=== PATIENT | male | born 1965 | race Caucasian/White ===

== ENCOUNTER → 2018-06-10 | Outpatient (CLI) | payer OTHER ==
[~2018-06-10] VITALS: Ht 182.9 cm; Wt 102.1 kg
[~2018-06-10] MED LIST: ASPIR 8181 MG PO; LEXAPRO20 MG PO; LOPRESSOR50 PO; XARELTO20 MG PO; ZOCOR20 MG PO
[2018-06-10 07:40] VITALS: BP 119/79
--- NOTE | 2018-06-10 09:01 | EKG ---
[address] [address] ELECTROCARDIOGRAM REPORT Name: ANN WTATS Anna Marie Room #: REG [facility]#: [id number] ������������������ Admission: 06/10/18 ������������������ Attend Phys: Juan A Booker MD Discharge: ������������������ Date of : 67 Report #: [id number] ����������������������������������������������������������������� [id number] THIS REPORT FOR: //name// [facility] Test Date: 2018-06-10 Test Time: 08:12:19 Pat Name: ANN WATTS Department: Room: Gender: M Data Warehouse Developer: Ruben BLANCO : 1965 Requested By: David Staton Order Number: [id number] MD: David Staton Measurements Intervals [place] Rate: 53 P: [place]: QRS: 22 QRSD: 119 T: 210 QT: 510 QTc: 479 Interpretive Statements Atrial fibrillation Nonspecific intraventricular conduction delay ST and T wave abnormality No previous ECG available for comparison Electronically Signed On 06-10-2018 9:01:45 CDT by David Staton [email or web address] ��������������������������������������������� <ELECTRONICALLY SIGNED> ���������������������������������������� By: David Staton MD, [facility] ��������������������������������������������� 06/10/1801 1 David Staton MD, FACC /EPI
--- NOTE | 2018-06-10 09:03 | EKG ---
[address] [address] ELECTROCARDIOGRAM REPORT Name: ANN WATTS Room #: REG [facility]#: [id number] ������������������ Admission: 06/10/18 ������������������ Attend Phys: Juna A Booker MD Discharge: ������������������ Date of : 67 Report #: [id number] ����������������������������������������������������������������� [id number] THIS REPORT FOR: //name// [facility] Test Date: 2018-06-10 Test Time: 08:43:45 Pat Name: ANN WATTS Department: Room: Gender: M Practice Physician: Ruben BLANCO : 1965 Requested By: Juan A Booker Order Number: [id number] MD: David Staton Measurements Intervals [place] Rate: 52 P: -17 ID: [id number] QRS: 21 QRSD: 118 T: 225 QT: 530 QTc: 493 Interpretive Statements Sinus rhythm Atrial premature complex Nonspecific intraventricular conduction delay No previous ECG available for comparison Electronically Signed On 06-10-2018 9:03:15 CDT by David Staton [email or web address] ��������������������������������������������� <ELECTRONICALLY SIGNED> ���������������������������������������� By: David Staton MD, [facility] ��������������������������������������������� 06/10/18 0903 0843 2 David Staton MD, FACC /EPI
--- NOTE | 2018-06-10 09:09 | TEE ---
[facility] [place] [address] TRANSESOPHAGEAL ECHOCARDIOGRAM Name: ANN WATTS Room #: REG [facility]#: [id number] ������������� Admission: 06/10/18 ������������� Attend Phys: Juan A Booker Discharge: ��� ������������� ��� Date of : 67 Date of Service: 06/10/1809 �� Report #: [id number] �������� ��������������������������������������������[id number] THIS REPORT FOR: //name// APPROVED REPORT Study performed: 06/10/2018 08:04:19 EXAM: Transesophageal Echocardiogram and Cardioversion Patient Location: CV holding Status: routine BSA: 2.24 Other Information Study Quality: Adequate Indications Atrial Fibrillation Echo Enhancing Agent Indication: Rule out Shunt Agent(s) / Amount(s) Used: Agitated Saline 6 cc Procedure After obtaining informed consent, patient underwent transesophageal echo in the [employer] [facility]. Type of Sedation : Conscious Sedation Sedation was administered by Blanca Brush RN. Sedation start time: 08:23 Case end Time: 08:28 Sedation was achieved intravenously with: Versed (50) Fentanyl (3) Transesophageal probe was inserted and advanced into esophagus without difficulty by aDvid Staton MD. Echo enhancement indication: R/O Septal defect. Echo enhancement agent administered: Agitated Saline The JAMES was performed without complications. Synchronized Cardioversion attempted: Successful Rhythm following Synchronized Cardioversion: Normal Sinus Rhythm Throughout the procedure, the blood pressure, pulse oximetry, cardiac rhythm, and rate were monitored. The patient tolerated the procedure without adverse effects. Recovery from conscious sedation was uneventful and vital signs were stable. Left Ventricle [facility] [address] [address] TRANSESOPHAGEAL ECHOCARDIOGRAM Name: ANN WATTS Room #: REG Magy.#: [id number] ������������� Admission: 06/10/18 ������������� Attend Phys: Juan [facility] Discharge: ��� ������������� ��� Date of : 67 Date of Service: 06/10/18 0909 �� Report #: [id number] �������� ��������������������������������������������[id number] Echo findings are consistent with hypertrophic cardiomyopathy. The left ventricular systolic function is normal. The left ventricular ejection fraction is within the normal range. LVEF is 55-60%. Right Ventricle The right ventricle is normal size. The right ventricular systolic function is normal. Atria The left atrium size is normal. No thrombus is visualized in the left atrium or appendage. No shunting by contrast bubble injection The right atrium size is normal. Aortic Valve The aortic valve is trileaflet, mild sclerosis Mild aortic regurgitation. There is no aortic valvular stenosis. Mitral Valve The anterior mitral valve leaflet is mildly thickened. Systolic anterior motion Moderate mitral regurgitation. No evidence of mitral valve stenosis. Tricuspid Valve The tricuspid valve is normal in structure. There is no tricuspid valve regurgitation noted. Pulmonic Valve The pulmonary valve is normal in structure. There is no pulmonic valvular regurgitation. Great Vessels The aortic root is normal in size. The ascending aorta is normal in size. IVC is normal in size and collapses >50% with inspiration. Pericardium There is no pericardial effusion. <Conclusion> The left ventricular systolic function is normal. Echo findings are consistent with hypertrophic cardiomyopathy. LVEF is 55-60%. No thrombus is visualized in the left atrium or appendage. No shunting by contrast bubble injection The aortic valve is trileaflet, mild sclerosis, no stenosis. Mild aortic regurgitation. [facility] [address] [place] [address] TRANSESOPHAGEAL ECHOCARDIOGRAM Name: ANN WATTS Room #: REG [facility]#: [id number] ������������� Admission: 06/10/18 ������������� Attend Phys: Juan A Booker Discharge: ��� ������������� ��� Date of : 67 Date of Service: 06/10/18908 �� Report #: [id number] �������� ��������������������������������������������[id number] The anterior mitral valve leaflet is mildly thickened. Systolic anterior leaflet motion. Moderate mitral regurgitation. Normal aorta There is no pericardial effusion. Successful cardioversion of atrial fibrillation to sinus rhythm following 2 biphasic synchronous joules shocks ��������������������������������������������� <ELECTRONICALLY SIGNED> ���������������������������������������� By: David Staton MD, FACC ��������������������������������������������� 06/10/18908 8 8 David Staton MD, FACC /INF
--- NOTE | 2018-06-10 11:38 | NUR ---
PT HOME POST JAMES/CV. NSR. VSS. SL DC'D. PT RECOVERED WITH NO C/O. DISCHARGE INSTRUCTIONS GIVEN TO PT AND HIS FATHER. BOTH VOICE UNDERSTANDING. UP WITH STEADY GAIT TO BATHROOM-VOIDED. PLEASANT AFFECT.
== END | disposition home or self-care (01) ==
LOC: CATH 06:53
DX: I08.0 Rheumatic disorders of both mitral and aortic valves (principal); I48.91 Unspecified atrial fibrillation; I10 Essential (primary) hypertension; I42.9 Cardiomyopathy, unspecified; E78.5 Hyperlipidemia, unspecified; Z79.01 Long term (current) use of anticoagulants; Z86.73 Personal history of transient ischemic attack (TIA), and cerebral infarction without residual deficits; Z79.899 Other long term (current) drug therapy; Z79.82 Long term (current) use of aspirin; Z98.890 Other specified postprocedural states

== ENCOUNTER → 2018-07-10 | Outpatient (CLI) | payer OTHER ==
[~2018-07-10] MED LIST changes: +GABAPENTIN 100100 MG PO; +TOPROL XL100 MG PO
[2018-07-10 07:52] LABS: HEMATOCRIT 47.9 % (42.0-52.0); HEMOGLOBIN 16.4 gm/dL (14.0-18.0); MCH 30.6 pg (26.0-34.0); MCHC 34.3 g/dL (28.0-37.0); MCV 89.2 fL (80.0-100.0); RBC 5.37 mil/uL (4.50-6.00); RDW 13.4 % (10.5-14.5); WBC 6.9 thou/uL (4.0-11.0)
[2018-07-10 08:10] LABS: ALBUMIN 4.1 g/dL (3.4-5.0); CALCIUM 9.3 mg/dL (8.5-10.1); CREATININE 1.2 mg/dL (0.7-1.3); POTASSIUM 4.8 mmol/L (3.5-5.1); TOTAL BILIRUBIN 0.8 mg/dL (<0.1-1.0); TOTAL PROTEIN 7.1 g/dL (6.4-8.2)
== END ==
LOC: CAT 07:23
PROVIDERS: Internal Medicine Cardiovascular Disease
DX: R91.1 Solitary pulmonary nodule (principal); I48.91 Unspecified atrial fibrillation

== ENCOUNTER 2018-07-15 09:39 | Observation (INO) | payer OTHER ==
[~2018-07-15] VITALS: Ht 182.9 cm; Wt 101.6 kg
[~2018-07-15 09:39] MED LIST changes: -GABAPENTIN 100100 MG PO; -TOPROL XL100 MG PO
[2018-07-15 10:06] LABS: ABSOLUTE NEUTROPHILS 3.3 thou/uL (1.4-8.2); BASOPHILS 0.8 % (0.0-2.0); HEMATOCRIT 47.6 % (42.0-52.0); HEMOGLOBIN 16.1 gm/dL (14.0-18.0); LYMPHOCYTES 36.6 % (24.0-44.0); MCH 30.1 pg (26.0-34.0); MCHC 33.7 g/dL (28.0-37.0); MCV 89.3 fL (80.0-100.0); MONOCYTES 6.8 % (1.0-8.0); PLATELET COUNT 175 thou/uL (150-400); POLYS 53.8 % (36.0-66.0); RBC 5.33 mil/uL (4.50-6.00); RDW 13.1 % (10.5-14.5); WBC 6.1 thou/uL (4.0-11.0)
[2018-07-15 10:17] LABS: APTT 30.3 Seconds (24.5-32.8); INR 1.1; PROTIME 11.1 Seconds (9.3-11.4)
[2018-07-15 10:21] LABS: CALCIUM 9.2 mg/dL (8.5-10.1); CREATININE 1.2 mg/dL (0.7-1.3); POTASSIUM 4.4 mmol/L (3.5-5.1)
[2018-07-15 10:23] VITALS: BP 113/78
[2018-07-15 10:27] LABS: ALBUMIN 3.8 g/dL (3.4-5.0); TOTAL BILIRUBIN 0.7 mg/dL (<0.1-1.0)
[2018-07-15] MEDS ORDERED: TOPROL XL100 MG PO (10:40)
[2018-07-15] MEDS ORDERED: GABAPENTIN 100100 MG PO (10:45)
[2018-07-15 19:28] VITALS: BP 116/80
[2018-07-16 00:19] VITALS: BP 129/72
[2018-07-16 04:45] VITALS: BP 129/96
[2018-07-16 07:00] VITALS: BP 115/78
--- NOTE | 2018-07-16 07:32 | NUR ---
ASSESSMENTS CHARTED. PATIENT OFF BEDREST AT 22:15 RIGHT GROIN CHECKED BEFORE AND AFTER PATIENT GETS UP TO THE BATHROOM. ROGER DC'D. PATIENTS BLADDER IS EMPTY AFTER VOID. UP AT KIT IN ROOM. DENIES PAIN. PATIENT DID NOT SLEEP AT ALL DURING THE NIGHT. PLAN OF CARE TO GO HOME TODAY.
[2018-07-16] MEDS ORDERED: MULTAQ 400 MG400 MG PO (09:46)
[2018-07-16 10:24] VITALS: BP 115/78
--- NOTE | 2018-07-16 10:39 | NUR ---
AAAO4 VERY PLEASANT AND COOPERATIVE. RIGHT GROIN CLEAN AND DRY, SOFT DENIES PAIN. LEFT WRIST WITH DRESSING INTACT. GOOD APPETITE FOR BREAKFAST. SALINE LOCK REMOVED AND TELE REMOVED. PATIENT IS DRESSED AND READY FOR D/C. REVIEWED DISCHARGE INFORMATION AND PATIENT VERBALIZED GOOD UNDERSTANDING. VOLUNTEER TO TAKE PATIENT TO EXIT.
--- NOTE | 2018-07-18 14:14 | P ---
[facility] [place] [address] PROCEDURE REPORT Name: ANN WATTS Room #: 200-I [facility] Chidi Real#: [id number] Admission: 07/15/18 ������������������ Attend Phys: Juan A Booker MD Discharge: 07/16/18 ������������������ Date of : 67 Report #: [id number] THIS REPORT FOR: //name// CC: FAM mj CANDIDA PARKER Juan A Booker PREOPERATIVE DIAGNOSIS: Atrial fibrillation. POSTOPERATIVE DIAGNOSIS: Atrial fibrillation. HISTORY: The patient is a 52-year-old with history of atrial fibrillation, here for ablation. PROCEDURE: 1. Atrial fibrillation ablation, CPT code 20469. 2. A 3D mapping EP, CPT code 17378. 3. Intracardiac echo, CPT code 97460. ANESTHESIA: The patient underwent general anesthesia with no anesthesia related complications. The patient did have systolic blood pressures below 100 prior to initiation of the procedure and they were having to give him some vasopressors. As such, I recommended that we cardiovert him before the case and we watched him for a period of 10 minutes after the cardioversion. His systolic blood pressures improved to 120 mmHg. As such, the procedure was performed. DESCRIPTION OF PROCEDURE: The patient underwent informed consent. We discussed the details of the procedure including the risks, which include but not limited to bleeding, vascular damage, cardiac perforation as well as stroke or WA. He understood these risks and is willing to proceed. The patient was brought to the EP laboratory in fasting and sedated state and prepped and draped in a sterile fashion. Next I obtained access to the right femoral veins after injecting lidocaine in the right femoral vein and placed an 8, 9, and 7-German short sheath using the modified Seldinger technique. Catheters were placed into the right atrium. Decapolar catheter was easily placed in the coronary sinus. An ICE catheter was utilized to create a detailed 3D geometry of the left atrium with evidence of a left atrial appendage, two left and two right pulmonary veins. The left lower vessel had 2 branches. The right inferior pulmonary vein also had two early branches. Next, the patient was systemically heparinized and a transseptal was performed using an SL1 sheath and a Mobridge needle. The transseptal was straightforward and I advanced the SL1 to the left atrium using a Lasso catheter, I created a detailed 3D geometry of the left atrium. I then exchanged the SL1 sheath for the cryo sheath and the cryoablation balloon. At baseline, the patient was in sinus rhythm with a sinus [facility] [address] [place] [address] PROCEDURE REPORT Name: ANN WATTS Room #: 200-I [facility] Chidi Anna Marie#: [id number] Admission: 07/15/18 ������������������ Attend Phys: Juan A oBoker MD Discharge: 07/16/18 ������������������ Date of : 67 Report #: [id number] cycle length of 910 milliseconds, MT interval 260 milliseconds, QRS duration 125 milliseconds, QT interval 545 milliseconds. Next, I started by isolating the left superior pulmonary vein. The left superior pulmonary vein isolated during the first 4-minute freeze within 75 seconds. I performed a second freeze of 3 minutes duration. I turned my attention to the left inferior pulmonary vein. I performed a 4-minute freeze followed by a 3-minute freeze followed by a third freeze of 4 minutes duration. At this point, the vein was isolated. I then turned my attention to the right superior pulmonary vein, I performed a 4-minute freeze followed by a 3-minute freeze. There was still some area of connection noted and therefore, I performed a third freeze that was more inferior and I ablated more anteriorly. During this freeze, the vein isolated within 60 seconds and his third freeze was 4 minutes duration. I then turned my attention to the right inferior pulmonary vein. Of note, this vessel had upper and lower branch. I performed a 4-minute followed by 3-minute freeze in the upper branch and then it appeared that there was still connection of the lower branch, so we performed a two 3 minute freezes in this lower branch and the vein was now clearly isolated. We could clearly see the two separate branches on ICE in this right inferior pulmonary vein. I then re-interrogated all the veins and everything was isolated except the left inferior pulmonary vein. It appeared that the upper branch was isolated, but the lower branch still had activity. Therefore, I performed a freeze in this vessel, but the attempts were very good, so I came off after about 60 seconds. I then performed an additional freeze of 4 minutes duration with better temperatures and afterwards, there was isolation of this lower branch of the left inferior pulmonary vein. As such, all veins were now isolated. The patient was in sinus rhythm using intracardiac ultrasound to verify there is no pericardial effusion. Post-ablation, the patient was in sinus rhythm with a sinus cycle length of 840 milliseconds, MT interval 170 milliseconds, QRS duration 128 milliseconds, QT interval 480 milliseconds. As such, all catheters and sheaths were pulled after the patient received systemic protamine. There were no procedure related complications. CONCLUSIONS: Successful AFib ablation with isolation of the pulmonary veins. ��������������������������������������������� <ELECTRONICALLY SIGNED> ���������������������������������������� By: Juan A Booker MD ��������������������������������������������� 07/18/18 1414 1611 0027 Juan A Booker MD /nt
--- NOTE | 2018-07-18 14:14 | D ---
[facility] [place] [address] DISCHARGE SUMMARY Name: ANN WATTS Room #: 200-I [facility] Chidi Real#: [id number] Admission: 07/15/18 ������������������ Attend Phys: Juan A Booker MD Discharge: 07/16/18 ������������������ Date of : 67 Report #: [id number] THIS REPORT FOR: //name// CC: FAM unknown CANDIDA PARKER Juan A Booker DISCHARGE DIAGNOSES: 1. Atrial fibrillation. 2. Hypertrophic cardiomyopathy. PROCEDURES PERFORMED: AFib ablation. HISTORY: The patient is a 52-year-old with history of hypertrophic cardiomyopathy and atrial fibrillation, who has failed antiarrhythmic drug therapy. He is here for an ablation. He underwent successful AFib ablation with no procedure-related complications. HOSPITAL COURSE: The patient was monitored in the CCU at night and did well. On the day of discharge, he does report that last night, he had some pleuritic chest pain that was worse with inspiration and improved with repositioning, which is a common post-ablation. Otherwise, he denied any shortness of breath, PND, orthopnea, presyncope or syncope. On telemetry, he remained in sinus rhythm and his vitals were stable on exam. His heart was regular rate and rhythm with no murmurs, rubs, gallops. Lungs were clear to auscultation bilaterally. Abdomen was soft, nontender. Extremities; no clubbing, cyanosis, or edema and his right groin was healed nicely. As such, he was deemed stable for discharge home. He will continue on aspirin and Xarelto. He will be sent home on Multaq 400 mg b.i.d. for 3 months. He will follow up in clinic in 2 weeks. ��������������������������������������������� <ELECTRONICALLY SIGNED> ���������������������������������������� By: Juan A Booker MD ��������������������������������������������� 07/18/18 1414 0743 0813 Juan A Booker MD /nt
== END 2018-07-16 11:44 | disposition home or self-care (01) ==
LOC: CATH 09:39 → 2N 15:06 → ENTRNSPT 07-16 10:38 → EDTRNSPTSTS 07-16 10:42 → 2N 07-16 11:44
PROVIDERS: ADMIT Internal Medicine Cardiovascular Disease
DX: I48.91 Unspecified atrial fibrillation (principal); I42.2 Other hypertrophic cardiomyopathy
CPT/HCPCS: 62110; 62900; 70005

== ENCOUNTER → 2018-08-01 | Outpatient (CLI) | payer OTHER ==
[~2018-08-01] VITALS: Ht 188 cm; Wt 102.1 kg
[~2018-08-01] MED LIST changes: +GABAPENTIN 100100 MG PO; +MULTAQ 400 MG400 MG PO; +TOPROL XL100 MG PO
[2018-08-01 11:02] VITALS: BP 106/64
[2018-08-01 11:23] LABS: HEMATOCRIT 45.9 % (42.0-52.0); HEMOGLOBIN 15.7 gm/dL (14.0-18.0); MCH 30.7 pg (26.0-34.0); MCHC 34.3 g/dL (28.0-37.0); MCV 89.6 fL (80.0-100.0); RBC 5.13 mil/uL (4.50-6.00); RDW 13.7 % (10.5-14.5); WBC 7.3 thou/uL (4.0-11.0)
[2018-08-01 11:36] LABS: CALCIUM 8.8 mg/dL (8.5-10.1); CREATININE 1.3 mg/dL (0.7-1.3); POTASSIUM 4.2 mmol/L (3.5-5.1)
[2018-08-01 11:38] LABS: APTT 43.4 Seconds (24.5-32.8); INR 1.5; PROTIME 16.1 Seconds (9.3-11.4)
[2018-08-01 11:42] LABS: ALBUMIN 3.7 g/dL (3.4-5.0); TOTAL BILIRUBIN 1.1 mg/dL (<0.1-1.0); TOTAL PROTEIN 6.6 g/dL (6.4-8.2)
--- NOTE | 2018-08-29 15:48 | P ---
[facility] [place] [address] PROCEDURE REPORT Name: ANN WATTS Anna Marie Room #: REG MIKE Real#: [id number] Admission: 08/01/18 ������������������ Attend Phys: Juan A Booker MD Discharge: ������������������ Date of : 67 Report #: [id number] THIS REPORT FOR: //name// CC: AZAM barker CANDIDA PARKER Juan A Booker PREOPERATIVE DIAGNOSIS: Atrial fibrillation. POSTOPERATIVE DIAGNOSIS: Atrial fibrillation. DESCRIPTION OF PROCEDURE: The patient underwent informed consent. He was prepped and draped in a sterile fashion. He was sedated by the Anesthesiology service. He underwent successful 200 joule synchronized cardioversion with rastafarian of sinus rhythm. There were no procedure-related complications. CONCLUSIONS: Successful DC cardioversion with rastafarian of sinus rhythm. ��������������������������������������������� <ELECTRONICALLY SIGNED> ���������������������������������������� By: Juan A Booker MD ��������������������������������������������� 08/29/18 1548 1152 1410 Juan A Booker MD /nt
== END | disposition home or self-care (01) ==
LOC: CATH 10:16
PROVIDERS: Internal Medicine Cardiovascular Disease
DX: I48.91 Unspecified atrial fibrillation (principal); I10 Essential (primary) hypertension; Z86.73 Personal history of transient ischemic attack (TIA), and cerebral infarction without residual deficits; Z98.890 Other specified postprocedural states; Z79.899 Other long term (current) drug therapy; Z79.82 Long term (current) use of aspirin
CPT/HCPCS: 62110; 62900

== ENCOUNTER → 2020-03-31 | Outpatient (CLI) | payer OTHER | LOC: LAB 09:57 | PROVIDERS: ATTEND Internal Medicine Cardiovascular Disease | DX: Z20.822 Contact with and (suspected) exposure to COVID-19 (principal) ==

== ENCOUNTER 2020-04-05 06:26 | Observation (INO) | payer OTHER ==
[~2020-04-05] VITALS: Ht 182.9 cm; Wt 105.2 kg
[2020-04-05] VITALS (9 sets, daily range): BP systolic 96–173; BP diastolic 66–76
[2020-04-05 07:40] LABS: ABSOLUTE NEUTROPHILS 3.3 thou/uL (1.4-8.2); BASOPHILS 0.7 % (0.0-2.0); EOSINOPHILS 2.7 % (0.0-3.0); HEMOGLOBIN 15.8 gm/dL (14.0-18.0); LYMPHOCYTES 31.8 % (24.0-44.0); MCH 30.7 pg (26.0-34.0); MCHC 33.6 g/dL (28.0-37.0); MCV 91.3 fL (80.0-100.0); PLATELET COUNT 219 thou/uL (150-400); POLYS 56.8 % (36.0-66.0); RBC 5.15 mil/uL (4.50-6.00); RDW 13.4 % (10.5-14.5); WBC 5.8 thou/uL (4.0-11.0)
[2020-04-05 07:42] LABS: CALCIUM 9.3 mg/dL (8.5-10.1); CREATININE 1.1 mg/dL (0.7-1.3); POTASSIUM 4.3 mmol/L (3.5-5.1)
[2020-04-05 07:47] LABS: APTT 27.3 Seconds (24.5-32.8)
[2020-04-05 07:50] LABS: TOTAL BILIRUBIN 0.6 mg/dL (0.2-1.0); TOTAL PROTEIN 7.2 g/dL (6.4-8.2)
--- NOTE | 2020-04-05 10:27 | TEE ---
[facility] [place] [address] TRANSESOPHAGEAL ECHOCARDIOGRAM Name: ANN WATTS Room #: REG MIKE Rela#: [id number] Admission: 04/05/20 Attend Phys: Juan A Booker MD Discharge: Date of : 67 Report #: [id number] THIS REPORT FOR: cc: CANDIDA PARKER - Family physician unknown Vaibhav Starks MD [facility] ~ ADDENDUM APPROVED REPORT Study performed: 04/05/2020 08:12:28 EXAM: Comprehensive 2D, Doppler, and color-flow Echocardiogram Patient Location: Out-Patient Room #: EP Lab Status: routine BSA: 2.30 HR: 60 bpm BP: 139/66 mmHg Rhythm: Atrial Fibrillation Other Information Study Quality: Good Indications Atrial Fibrillation Echo Enhancing Agent Indication: Rule out Shunt Agent(s) / Amount(s) Used: Agitated Saline 7 cc Procedure After obtaining informed consent, patient underwent transesophageal echo in the EP Lab. Type of Sedation : General Anesthesia Sedation start time: 819 Case end Time: 834 Sedation was achieved intravenously with: Propofol (200 mcg) Transesophageal probe was inserted and advanced into esophagus without difficulty by Vaibhav Starks MD. Echo enhancement indication: R/O Septal defect. Echo enhancement agent administered: Agitated Saline The JAMES was performed without complications. Throughout the procedure, the blood pressure, pulse oximetry, cardiac rhythm, and rate were monitored. [facility] [place] [address] [place] [address] TRANSESOPHAGEAL ECHOCARDIOGRAM Name: ANN WATTS Room #: REG Frahan#: [id number] Admission: 04/05/20 Attend Phys: Juan A Booker Discharge: Date of : 67 Report #: [id number] The patient tolerated the procedure without adverse effects. Recovery from conscious sedation was uneventful and vital signs were stable. Left Ventricle The left ventricle is normal size. There is normal LV segmental wall motion. Mild left ventricular wall thickness. The left ventricular systolic function is normal. The left ventricular ejection fraction is within the normal range. LVEF is 55-60%. Right Ventricle The right ventricle is normal size. The right ventricular systolic function is normal. Atria Left atrium is dilated. Right atrium is dilated. Aortic Valve The aortic valve is normal in structure. Mild aortic regurgitation. There is no aortic valvular stenosis. Mitral Valve The mitral valve is normal in structure. Mild mitral regurgitation. No evidence of mitral valve stenosis. Tricuspid Valve The tricuspid valve is normal in structure. Mild tricuspid regurgitation. Pulmonic Valve The pulmonary valve is normal in structure. There is no pulmonic valvular regurgitation. Great Vessels The aortic root is normal in size. Pericardium There is no pericardial effusion. <Conclusion> Anesthesiologist present Consent previously obtained After appropriate sedation by the anesthesiologist esophageal probe was advanced without difficulty. Normal left ventricle size mild concentric hypertrophy ejection [facility] [place] [address] TRANSESOPHAGEAL ECHOCARDIOGRAM Name: LISAGALINAANN Room #: REG Magy.#: [id number] Admission: 04/05/20 Attend Phys: Juan A Gregoriochonnosmani Discharge: Date of : 67 Report #: [id number] fraction 60% Mild biatrial enlargement Mild CARI enlargement, no obvious mass or clot detected. Tricuspid aortic valve Mild central aortic valve insufficiency Mild central mitral valve insufficiency Mild tricuspid valve insufficiency No evidence of atrial/ventricular septal defect by color-flow Doppler study No pericardial effusion Aorta, no calcification detected <ELECTRONICALLY SIGNED> By: Vaibhav Starks MD, FACC 04/05/20 1026 1026 1026 Vaibhav Starks MD, FACC /INF
--- NOTE | 2020-04-05 15:04 | NUR ---
1455 STOP COCK PRESSURE DEVICE REMOVED FROM RIGHT GROIN. PRESSURE APPLIED FOR 5 MINUTES AND GAUZE AND TEGADERM REAPPLIED. NO BLEEDING TO RIGHT GROIN. AREA SOFT TO TOUCH.
--- NOTE | 2020-04-05 20:16 | NUR ---
PT. ARRIVED AT THE FLOOR CLOSE 1600; AOX4; NO C/O PAIN; R. GROIN INCISION C/D/I; NO HEMATOMA; EDUCATED ABOUT BED REST UNTIL 1830; [facility]. [facility]; EDUCATED ABOUT HOLDING PRESSURE IN CASE OF COUGHING; [facility]; EDUCATED ABOUT CALLING IMMEDIATELY IF NOTICED BLOOD OR SWEALLING; [facility]; EDUCATED ABOUT FALL PRECAUTIONS AND VISITOR POLICY; ST. UND[facility]STANDING; SR ON THE MONITOR; D/C ROGER AT 1900; ADMISSION PERFORMED; ASSESSMENT CHARGED; FOLLOWING POC; PASSED ON REPORT;
--- NOTE | 2020-04-06 04:58 | NUR ---
ASSESSMENTS CHARTED, MEDS CHARTED GIVEN. PATIENT WENT TO [facility] DURING THE DAY FOR AN ABLATION. PATIENT OFF BEDREST BEFORE SHIFT STARTED. RIGHT GROIN SITE WAS C/D/I IN THE BEGINNING. AFTER THE PATIENT GOT UP TO THE BATHROOM HE HAD A SM YUROK OF RED ON THE BANDAGE. BORDERS WERE MARKED. WHEN UP AGAIN, THE WOUND AGAIN WEEPED. PATIENT DENIED PAIN, FALL PRECAUTIONS IN PLACE DURING SHIFT.
[2020-04-06 05:05] VITALS: BP 113/75
[2020-04-06 07:20] VITALS: BP 119/81
[2020-04-06] MEDS ORDERED: MULTAQ 400 MG400 MG PO (08:44)
--- NOTE | 2020-04-06 08:46 | NUR ---
ASSUMED PT CARE AT 0700. PT DENIES PAIN, ASSESSMENT PERFORMED. VSS. WILL CONTINUE TO MONITOR. PTS GOAL IS TO GO HOME TODAY.
[2020-04-06 09:30] VITALS: BP 119/81
--- NOTE | 2020-04-12 08:38 | P ---
[facility] [place] [address] PROCEDURE REPORT Name: ANN WATTS Room #: 213-P [facility] Chidi Real#: [id number] Admission: 04/05/20 Attend Phys: Juan A Booker MD Discharge: 04/06/20 Date of : 67 Report #: [id number] THIS REPORT FOR: cc: CANDIDA PARKER - Family physician unknown Juan A Booker MD ~ PREOPERATIVE DIAGNOSIS: Atrial fibrillation. POSTOPERATIVE DIAGNOSIS: Atrial fibrillation. PROCEDURES PERFORMED: 1. AFib ablation, [address]12[address]. 2. 3D mapping, CPT code 95817. 3. Intracardiac echo, CPT code 67849. 4. Focal ablation, CPT code 73487. 5. Second pathway ablation for atrial flutter, CPT code 78180. HISTORY: The patient is a 54-year-old with a history of hypertrophic cardiomyopathy, prior TIA as well as AFib ablation in the past. He has had clinical recurrence. He is here for repeat ablation. ANESTHESIA: The patient underwent general anesthesia. No anesthesia related complications. DESCRIPTION OF PROCEDURE: The patient underwent informed consent. We discussed the details of the procedure including the risks, which include but not limited to bleeding, infection, vascular damage, cardiac perforation, stroke and CO. He understood these risks and is willing to proceed. The patient was brought to the EP laboratory in a fasting nonsedated state, prepped and draped in a sterile fashion. I obtained access of the right femoral vein x 3 placed 8, 9, 7-Lebanese short sheath. Next, under fluoroscopy, a decapolar catheter was placed into the coronary sinus. An ICE catheter was placed in the right atrium using intracardiac ultrasound. There was evidence of two right and two left pulmonary veins. This was merged with the prior cardiac CT scan. The patient was systemically heparinized and a transseptal was performed using an SL1 sheath and a [place] needle. This was straightforward and then I exchanged the SL1 sheath for an Agilis sheath and then placed a PentaRay catheter into the left atrium. Next, a detailed 3D voltage map of the left atrium was created. This showed that all veins were isolated except for the right superior pulmonary vein. There was also extensive atrial fibrosis along the posterior wall. I therefore started by re-isolating the right superior pulmonary vein. There was one small signal noted an ablation here for 20 seconds resulted in re-isolation of the right superior pulmonary vein. I then started by isolating the posterior wall, I started by creating a roofline then going down along the right sided veins, then coming across the lower aspect of [facility] [address] [place] [address] PROCEDURE REPORT Name: ANN WATTS Anna Marie Room #: 213-P [facility] Chidi Real#: [id number] Admission: 04/05/20 Attend Phys: Juan A Booker MD Discharge: 04/06/20 Date of : 67 Report #: [id number] the atrium and then ablated up along the choco of the left sided veins. Esophageal temperatures were closely monitored and there were some slight elevations near the left sided veins. I performed lower power ablation at this site in a shorter duration jeffrey and the esophageal temperatures remained in acceptable limits. After creating our lesion set, there was still activation along the posterior wall. Therefore, we went in and started bleeding, focal locations along the mid aspect of the posterior wall and eventually this resulted in complete posterior wall isolation. The patient then underwent 200 joules synchronized cardioversion with jewish of sinus rhythm. ATRIAL FLUTTER ABLATION: After isolating the pulmonary vein and then performing our posterior wall lesion set, we decided to perform atrial flutter ablation on the right side. I used my ablation catheter. We ablated at 40 leon and performed a continuous drag line at 6 o'clock along the cavotricuspid isthmus. Post-ablation, there was evidence of bidirectional block. Transisthmus conduction time was now 110 milliseconds. Using intracardiac ultrasound, I verified there is no pericardial effusion. Post-ablation, the patient was in sinus rhythm with sinus cycle length of 1250 milliseconds, [place] interval of 245 milliseconds, QRS duration 90 milliseconds, QT interval 485 milliseconds. As such, the patient received systemic protamine. Once the ACT was within acceptable range, catheters and sheaths were pulled and hemostasis was obtained. There were no procedure related complications. CONCLUSIONS: 1. Successful AFib ablation with re-isolation of the pulmonary veins. 2. Successful posterior wall isolation. 3. Successful right-sided atrial flutter ablation. <ELECTRONICALLY SIGNED> By: Juan A Booker MD 04/12/20 0838 [id number] Juan A Booker MD /nt
== END 2020-04-06 10:23 | disposition home or self-care (01) ==
LOC: CATH 06:26 → 2N 15:57 → CATH 15:58 → 2N 04-06 10:23
PROVIDERS: ADMIT Internal Medicine Cardiovascular Disease; ATTEND Internal Medicine Cardiovascular Disease
DX: I48.91 Unspecified atrial fibrillation (principal); I42.9 Cardiomyopathy, unspecified; F41.9 Anxiety disorder, unspecified; F32.9 Major depressive disorder, single episode, unspecified; Z86.73 Personal history of transient ischemic attack (TIA), and cerebral infarction without residual deficits; Z79.899 Other long term (current) drug therapy
CPT/HCPCS: 62110; 62900; 65020; 65040; 70005

== ENCOUNTER → 2020-05-07 | Outpatient (CLI) | payer OTHER | LOC: LAB 08:04 | PROVIDERS: ATTEND Internal Medicine Cardiovascular Disease | DX: Z01.812 Encounter for preprocedural laboratory examination (principal); Z20.822 Contact with and (suspected) exposure to COVID-19 ==

== ENCOUNTER → 2020-05-11 | Outpatient (CLI) | payer OTHER ==
[~2020-05-11] VITALS: Ht 182.9 cm; Wt 105.2 kg
[2020-05-11 11:10] VITALS: BP 109/73
[2020-05-11 11:15] LABS: HEMOGLOBIN 15.1 gm/dL (14.0-18.0); MCH 30.9 pg (26.0-34.0); MCHC 33.6 g/dL (28.0-37.0); MCV 92.1 fL (80.0-100.0); RBC 4.89 mil/uL (4.50-6.00); RDW 13.3 % (10.5-14.5); WBC 6.2 thou/uL (4.0-11.0)
[2020-05-11 11:26] LABS: CALCIUM 8.9 mg/dL (8.5-10.1); CREATININE 1.2 mg/dL (0.7-1.3); POTASSIUM 4.6 mmol/L (3.5-5.1)
[2020-05-11 11:28] LABS: INR 1.66; PROTIME 17.7 Seconds (9.3-11.4)
[2020-05-11 11:32] LABS: ALBUMIN 3.8 g/dL (3.4-5.0); TOTAL BILIRUBIN 0.8 mg/dL (0.2-1.0); TOTAL PROTEIN 6.8 g/dL (6.4-8.2)
[2020-05-11 12:12] VITALS: BP 109/73
--- NOTE | 2020-05-14 09:14 | P ---
[facility] [address] [place] [address] PROCEDURE REPORT Name: ANN WATTS Room #: REG MIKE Magy.#: [id number] Admission: 05/11/20 Attend Phys: Juan A Booker MD Discharge: Date of : 67 Report #: [id number] THIS REPORT FOR: cc: CANDIDA PARKER FAMILY PHYSICIAN or PCP Juan A Booker MD ~ PROCEDURE: Cardioversion and implantable loop recorder insertion. PREOPERATIVE DIAGNOSES: 1. Atrial fibrillation. 2. Palpitations. 3. Presyncope. 4. Hypertrophic cardiomyopathy. DESCRIPTION OF PROCEDURE: The patient underwent informed consent for both the implantable loop recorder insertion and a cardioversion. He was then prepped for the implantable loop recorder. He was prepped in a standard fashion. I injected lidocaine at the incision site. Incision was made, device was injected and a single suture was performed. Surgical glue was placed and a dressing was placed. There were no procedure related complications. Implanted device was a [employer] model # LNQ11, serial #[id number]. Next, after this was concluded, he was prepped for a cardioversion. Of note, during the implantation of a loop recorder, he did become slightly vagal diaphoretic and bradycardic into the 30s, but this resolved after a few minutes with no interventions. The patient was then prepped for cardioversion. Anesthesia sedated the patient and then once sedated, he underwent a single 200 joule synchronized cardioversion with oriental orthodox of sinus rhythm. There were no procedure related complications. CONCLUSIONS: 1. Successful implantation of an implantable loop recorder. 2. Successful direct current cardioversion with oriental orthodox of sinus rhythm. <ELECTRONICALLY SIGNED> By: Juan A Booker MD 05/14/20 0914 [id number] Juan A Booker MD /nt
== END | disposition home or self-care (01) ==
LOC: CATH 08:14
PROVIDERS: ATTEND Internal Medicine Cardiovascular Disease
DX: I48.91 Unspecified atrial fibrillation (principal); I42.0 Dilated cardiomyopathy; R00.2 Palpitations; R55 Syncope and collapse; I48.92 Unspecified atrial flutter; I11.0 Hypertensive heart disease with heart failure; I50.9 Heart failure, unspecified; Z98.890 Other specified postprocedural states; Z79.899 Other long term (current) drug therapy; Z86.73 Personal history of transient ischemic attack (TIA), and cerebral infarction without residual deficits; Z79.82 Long term (current) use of aspirin
CPT/HCPCS: 62110; 62900

== ENCOUNTER → 2021-03-22 | Outpatient (CLI) | payer OTHER | LOC: SJCVCIMAG 07:49 | PROVIDERS: ATTEND Internal Medicine Cardiovascular Disease | DX: I08.3 Combined rheumatic disorders of mitral, aortic and tricuspid valves (principal); I48.91 Unspecified atrial fibrillation; I42.2 Other hypertrophic cardiomyopathy; Z79.82 Long term (current) use of aspirin; Z79.899 Other long term (current) drug therapy; Z82.49 Family history of ischemic heart disease and other diseases of the circulatory system ==

== ENCOUNTER → 2021-04-04 | Outpatient (CLI) | payer OTHER ==
[~2021-04-04] VITALS: Ht 182.9 cm; Wt 105.2 kg
[~2021-04-04] MED LIST changes: +SERTRALINE HCL100 MG PO
[2021-04-04 11:54] VITALS: BP 113/73
--- NOTE | 2021-04-04 12:05 | NUR ---
PT HAS AN ALLERGY TO A MEDICATION FROM A PRIOR PROCEDURE THAT WE COULD NOT FIGURE OUT BECAUSE PTS COULDNT REMEMBER. PROCEDURE WAS SOME FORM OF CAUTERIZATION IN HIS NOSE. REACTION TO SAID MEDICATION WAS SEIZURES.
[2021-04-04 12:12] LABS: ABSOLUTE NEUTROPHILS 3.7 thou/uL (1.4-8.2); BASOPHILS 0.7 % (0.0-2.0); EOSINOPHILS 1.3 % (0.0-3.0); HEMATOCRIT 42.1 % (42.0-52.0); HEMOGLOBIN 13.9 gm/dL (14.0-18.0); LYMPHOCYTES 25.3 % (24.0-44.0); MCH 25.5 pg (26.0-34.0); MCHC 33.1 g/dL (28.0-37.0); MCV 76.9 fL (80.0-100.0); MONOCYTES 7.2 % (1.0-8.0); PLATELET COUNT 206 thou/uL (150-400); POLYS 65.5 % (36.0-66.0); RBC 5.47 mil/uL (4.50-6.00); RDW 17.5 % (10.5-14.5); WBC 5.7 thou/uL (4.0-11.0)
[2021-04-04 12:18] LABS: CALCIUM 8.9 mg/dL (8.5-10.1); CREATININE 1.2 mg/dL (0.7-1.3)
[2021-04-04 12:24] LABS: ALBUMIN 3.8 g/dL (3.4-5.0); TOTAL BILIRUBIN 0.6 mg/dL (0.2-1.0); TOTAL PROTEIN 6.7 g/dL (6.4-8.2)
[2021-04-04 12:37] LABS: APTT 35.3 Seconds (24.5-32.8); INR 1.3
== END | disposition home or self-care (01) ==
LOC: CATH 03-29 09:02
PROVIDERS: ATTEND Internal Medicine Cardiovascular Disease
DX: I48.91 Unspecified atrial fibrillation (principal); I42.2 Other hypertrophic cardiomyopathy; I49.9 Cardiac arrhythmia, unspecified; I11.0 Hypertensive heart disease with heart failure; I50.9 Heart failure, unspecified; Z98.890 Other specified postprocedural states; Z79.899 Other long term (current) drug therapy; Z86.73 Personal history of transient ischemic attack (TIA), and cerebral infarction without residual deficits; Z20.822 Contact with and (suspected) exposure to COVID-19; Z79.01 Long term (current) use of anticoagulants
CPT/HCPCS: 62110; 62900